=== PATIENT | female | born 1975 | race Caucasian/White ===

== ENCOUNTER 2017-02-04 16:54 | Inpatient (IN) | payer MEDICAID ==
--- NOTE | 2017-02-04 18:17 | C.PDOC ---
History Of Present Illness 42 year old female presents to the ED as a prescreen for heroin detox. Patient states she uses 10 bags daily intranasally and reports using 3 bags [employer]. She has no physical complaints at this time. Time Seen by Provider: 02/04/17 17:59 Chief Complaint (Nursing): Medical Clearance History Per: Patient History/Exam Limitations: no limitations Onset/Duration Of Symptoms: Hrs Current Symptoms Are (Timing): Still Present Severity: Mild Past Medical History Reviewed: Historical Data, Nursing Documentation, Vital Signs Vital Signs: Last Vital Signs Temp 98.2 F 02/04/17 20:51 Pulse 72 02/04/17 20:51 Resp 18 02/04/17 20:51 BP 123/82 02/04/17 20:51 Pulse Ox 98 02/04/17 20:51 Family History: States: Unknown Family Hx - Social History Hx Alcohol Use: Yes Hx Substance Use: Yes - Immunization History Hx Tetanus Toxoid Vaccination: No Hx Influenza Vaccination: No Hx Pneumococcal Vaccination: No Review Of Systems Except As Marked, All Systems Reviewed And Found Negative. Constitutional: Negative for: Fever, Chills Cardiovascular: Negative for: Chest Pain, Palpitations Respiratory: Negative for: Cough, Shortness of Breath Gastrointestinal: Negative for: Vomiting Psych: Negative for: Withdrawal Physical Exam - Physical Exam Appears: Non-toxic, No Acute Distress Skin: Normal Color, Warm, Dry, No Other (No track gonzalez) Head: Atraumatic, Normacephalic Eye(s): bilateral: EOMI, Other (+Pin point pupils) Oral Mucosa: Moist Chest: Symmetrical, No Deformity Cardiovascular: Rhythm Regular Respiratory: Normal Breath Sounds, No Accessory Muscle Use Extremity: Normal ROM Neurological/Psych: Oriented x3, Normal Speech ED Course And Treatment - Laboratory Results Result Diagrams: 02/04/17 18:54 02/04/17 18:54 Lab Interpretation: Abnormal (+ TOX OPIATES) Urine POC: Negative O2 Sat by Pulse Oximetry: 97 (Room air) Pulse Ox Interpretation: Normal Progress Note: Blood work and Urinalysis ordered and reviewed. Patient treated with Atarax and Desyrel. Crisis care director rn made aware of patient's arrival. Reevaluation Time: 20:19 Reassessment Condition: Unchanged - Physician Consult Information Outcome Of Conversation: D/W cRISIS @ 1800 and 2019- ok to Detox Medical Decision Making Medical Decision Making: astympatic mild pyuria, dirty catch- defer abx now for no complaints. heroine abuse. Disposition Doctor Will See Patient In The: Hospital Counseled Patient/Family Regarding: Studies Performed, Diagnosis - Disposition Disposition: HOSPITALIZED Disposition Time: 20:20 Condition: GOOD - Clinical Impression Clinical Impression: Heroin abuse - Scribe Statement The provider has reviewed the documentation as recorded by the Scribe Tavares Dee. Provider Attestation: All medical record entries made by the Scribe were at my direction and personally dictated by me. I have reviewed the chart and agree that the record accurately reflects my personal performance of the history, physical exam, medical decision making, and the department course for this patient. I have also personally directed, reviewed, and agree with the discharge instructions and disposition.
[2017-02-04 18:59] LABS: BASO # 0.1 K/uL (0.0-0.2); BASO % 1.1 % (0.0-2.0); EOS # 0.3 K/uL (0.0-0.7); EOS % 3.8 % (0.0-4.0); HEMATOCRIT 37.3 % (34.0-47.0); LYMPH % 30.3 % (20.0-40.0); MEAN CELL VOLUME 77.8 fL (81.0-99.0); MEAN CORPUSCULAR HEMOGLOBIN 25.6 pg (27.0-31.0); MEAN CORPUSCULAR HGB CONC 32.9 g/dL (33.0-37.0); MEAN PLATELET VOLUME 7.8 fL (7.2-11.7); MONO # 0.5 K/uL (0.0-0.8); MONO % 7.2 % (0.0-10.0); NRBC % 0.1 % (0.0-2.0); RED CELL DISTRIBUTION WIDTH 14.7 % (11.5-14.5); WHITE BLOOD COUNT 6.6 K/uL (4.8-10.8)
[2017-02-04 19:04] LABS: RBC URINE 4 /hpf (0-3); URINE BACTERIA RARE (<OCC); URINE BILIRUBIN NEGATIVE (NEGATIVE); URINE BLOOD NEGATIVE (NEGATIVE); URINE COLOR Yellow (YELLOW); URINE GLUCOSE (UA) NORMAL (Normal); URINE KETONE TRACE mg/dL (NEGATIVE); URINE LEUKOCYTE ESTERASE 1+ Leu/uL (Negative); URINE PROTEIN NEGATIVE (NEGATIVE); URINE UROBILINOGEN NORMAL mg/dL (0.2-1.0); WBC URINE 25 /hpf (0-5)
[2017-02-04 19:07] LABS: CHLORIDE 98 mmol/L (98-107); SODIUM 137 mmol/L (132-148)
[2017-02-04 19:08] LABS: POTASSIUM 4.1 mmol/L (3.6-5.2)
[2017-02-04 19:10] LABS: ALB/GLOB RATIO 1.4 (1.0-2.1); ALKALINE PHOSPHATASE 80 U/L (38-126); ALT/SGPT 18 U/L (9-52); AST/SGOT 22 U/L (14-36); BILIRUBIN,TOTAL 0.3 mg/dL (0.2-1.3); BLOOD UREA NITROGEN 13 mg/dL (7-17); CARBON DIOXIDE 25 mmol/L (22-30); GFR AFRICAN-AMERICAN > 60; GLUCOSE,RANDOM 136 mg/dL (65-105); TOTAL PROTEIN 6.7 g/dL (6.3-8.3)
[2017-02-04 19:11] LABS: ALCOHOL SERUM < 10 mg/dl (0-10); CALCIUM 8.7 mg/dl (8.6-10.4)
[2017-02-05] MEDS ORDERED: Aluminum Hydroxide/Magnesium Hydroxide Susp (30 mL) PO PRN (11:00)
--- NOTE | 2017-02-05 11:35 | PCM.PSYCH ---
Initial Psychiatric Evaluation - Initial Psychiatric Evaluation Type of Admission: Voluntary Legal Status: Capacity Chief Complaint (in patient's own words): "I need to get it together" Patient's Reaction to Hospitalization: positive History of Present Illness and Precipitating Events: Pt is a 42 yo female admitted for heroin detox. 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 Pt states she began using heroin 3 years ago and uses 10-12 bags per day intranasally. Last use was 9 bags at 4PM yesterday. Pt states she has used PCP in the past, but not currently, and has been to rehab for it in 2010. States she uses alcohol occasionally. Admits to smoking 8 cigarettes per day for 20 years. Denies using cocaine, cannabis, stimulants, ketamine, pain pills, and any other substances. Pt has no previous detox. At time of exam, pt is complaining of withdrawal symptoms including diaphoresis, chills, back pain, fatigue, irritability, and rhinorrhea. Pt denies abdominal pain, nausea, vomiting, anxiety, suicidal ideation, homicidal ideation, hallucinations and any other symptoms. Following discharge, pt is interested in outpatient program and possibly MAT. Past Psych hx: denies, no previous hospitalizations Family Psych Hx: denies PMHx: denies Medications: denies Legal issues: denies Current Medications: Active Medications Generic Name Dose Route Start Last Admin Trade Name Freq PRN Reason Stop Dose Admin Al Hydrox/Mg Hydrox/Simethicone 30 ml 02/05/17 11:00 Maalox 30 Ml PO TID PRN Indigestion / Heartburn Clonidine HCl 0.1 mg 02/05/17 11:00 Catapres PO Q8 PRN COWS Score More or Equal to 5 Hydroxyzine HCl 25 mg 02/04/17 20:55 02/04/17 21:57 Atarax PO 25 mg Q6 PRN Administration Anxiety Loperamide HCl 2 mg 02/05/17 11:00 Imodium PO Q8 PRN Diarrhea Methadone HCl 20 mg 02/05/17 10:00 02/05/17 11:16 Methadone PO 02/09/17 09:59 20 mg Q24H REGINA Administration Taper Ondansetron HCl 4 mg 02/05/17 11:00 Zofran Tab PO Q8 PRN Nausea/Vomiting Trazodone HCl 50 mg 02/04/17 20:55 02/04/17 21:57 Desyrel PO 50 mg HS PRN Administration Insomnia Past Psychiatric History - Past Psychiatric History Pertinent Medical Hx (Current Medical&Sleep Prob, Allergies): Allergies Allergy/AdvReac Type Severity Reaction Status Date / Time No Known Allergies Allergy Unverified 02/04/17 17:01 No Known Home Med 02/04/17 Review of Systems - Constitutional Constitutional: Chills, Sweats - EENT Nose/Mouth/Throat: As Per HPI - Gastrointestinal Gastrointestinal: absent: Abdominal Pain, Cramping, Diarrhea, Nausea, Vomiting - Musculoskeletal Musculoskeletal: As Par HPI, Back Pain - Neurological Neurological: absent: UNREMARKABLE - Psychiatric Psychiatric: absent: Hallucinations, Homicidal Ideation, Suicidal Ideation Mental Status Examination - Personal Presentation Personal Presentation: Looks stated age - Affect Affect: Constricted - Motor Activity Motor Activity: Calm - Reliability in Providing Information Reliability in Providing Information: Good - Speech Speech: Organized - Mood Mood: Anxious - Formal Thought Process Formal Thought Process: No Impairment - Obsessions/Compulsions Obsessions: No Compulsions: No - Cognitive Functions Orientation: Person, Place, Situation, Time Sensorium: Drowsy Attention/Concentration: Attentive Abstract Thinking: [place] Estimate of Intelligence: Average Judgement: Intact, as evidence by: Insight regarding need for hospitalization Memory: Recent intact, as evidence by: Ability to recall events of the day, Remote intact, as evidenced by: Abilit to recall sig. life events - Risk Risk: Withdrawal - Strength & Assets Inventory Strength & Assets Inventory: Family support, Employment status DSM 5 DX - DSM 5 DSM 5 Diagnosis: Primary: Opioid withdrawal Opioid use disorder-Severe - Recommended/Plan of Treatment Treatment Recommendations and Plan of Treatment: Opioids: -Methadone taper -As needed meds -Attend groups and activities -ME, CBT -Refer to outpatient program, consider MAT 32 minutes Projected ELOS: 4 days Prognosis: Good with treatment - Smoking Cessation Smoking Cessation Initiated: No
[2017-02-05 15:24] LABS: RBC URINE 1 /hpf (0-3); URINE BILIRUBIN NEGATIVE (NEGATIVE); URINE BLOOD NEGATIVE (NEGATIVE); URINE COLOR Yellow (YELLOW); URINE GLUCOSE (UA) NORMAL (Normal); URINE KETONE NEGATIVE (NEGATIVE); URINE LEUKOCYTE ESTERASE NEG Leu/uL (Negative); URINE PROTEIN NEGATIVE (NEGATIVE); URINE UROBILINOGEN NORMAL mg/dL (0.2-1.0); WBC URINE 1 /hpf (0-5)
--- NOTE | 2017-02-06 11:37 | PCM.PYCHPN ---
Psychiatric Progress Note - Psychiatric Progress Note Patient seen today, length of contact: 15 minutes Patient Chief Complaint: "I'm trying to feel better" Problems Identified/Issues Discussed: Pt seen, chart reviewed, and case discussed with staff. Pt is complaint with medications. States she had a difficult night, didn't sleep and feeling hot and cold all night. Denies abdominal cramping, nausea, vomiting, myalgias, rhinorrhea, anxiety, suicidal ideation, homicidal ideation and hallucinations. Pt states her plan following discharge is to move in with her daughter and attend [facility] outpatient program in [place]. Psychoeducation and support given. Medication Change: Yes (methadone taper) Medical Record Reviewed: Yes Mental Status Examination - Cognitive Function Orientation: Person, Place, Situation, Time Memory: Intact Attention: WNL Concentration: WNL Association: WNL Fund of Knowledge: WNL - Mood Mood: Neutral - Affect Affect: Constricted - Speech Speech: Appropriate - Formal Thought Process Formal Thought Process: No Impairment - Suicidal Ideation Suicidal Ideation: No - Homicidal Ideation Homicidal Ideation: No Goal/Treatment Plan - Goal/Treatment Plan Need for Continued Stay: Remain at risks for inpatient hospitalization, Discharge may exacerbated symptoms Progress Toward Problem(s) and Goals/Treatment Plan: Opioids: -Methadone taper -As needed meds -Attend groups and activities -PR, CBT -Refer to outpatient program, consider MAT Estimated Date of D/C: 02/09/17 - Smoking Cessation Smoking Cessation Initiated: No
--- NOTE | 2017-02-07 16:29 | PCM.PYCHPN ---
Psychiatric Progress Note - Psychiatric Progress Note Patient seen today, length of contact: 15 minutes Patient Chief Complaint: "don't feel well" Problems Identified/Issues Discussed: Pt was seen, chart reviewed, and case discussed with staff. Pt complaint with treatment. Reports continued withdrawal symptoms including insomnia, diaphoresis and chills. Denies abdominal pain, nausea, vomiting, suicidal ideation, homicidal ideation, and hallucinations. Pt plans to attend [facility] out patient program. At the time of exam, pt is still in bed, looks uncomfortable. Psychoeducation and support given. Medication Change: Yes (methadone taper, add seroquel, trazodone) Medical Record Reviewed: Yes Mental Status Examination - Cognitive Function Orientation: Person, Place, Situation, Time Memory: Intact Attention: WNL Concentration: WNL Association: WNL Fund of Knowledge: WNL - Mood Mood: Neutral - Affect Affect: Constricted - Speech Speech: Appropriate - Formal Thought Process Formal Thought Process: No Impairment - Suicidal Ideation Suicidal Ideation: No - Homicidal Ideation Homicidal Ideation: No Goal/Treatment Plan - Goal/Treatment Plan Need for Continued Stay: Remain at risks for inpatient hospitalization, Discharge may exacerbated symptoms Progress Toward Problem(s) and Goals/Treatment Plan: Opioids: -Methadone taper -As needed meds -Attend groups and activities -MS, CBT -Refer to outpatient program, consider MAT Estimated Date of D/C: 02/09/17
[2017-02-07 16:31] VITALS: RESP 18
--- NOTE | 2017-02-08 12:24 | PCM.PYCHPN ---
Psychiatric Progress Note - Psychiatric Progress Note Patient seen today, length of contact: 16 minutes Patient Chief Complaint: Patient seen and evaluated, chart reviewed and discussed with the nurse. The patient reports improvement in her mood and reports improvement in the withdrawal symptoms. However she still reports anxiety, and sweating. As per the nurse patient is improving. Patient is scheduled to be discharge tomorrow. She denies any suicidal ideation or homicidal ideation. Patient is taking medications and denies any side effects. Supportive therapy and psychoeducation were given. Medication Change: Yes (methadone taper, start gabapentin) Medical Record Reviewed: Yes Mental Status Examination - Cognitive Function Orientation: Person, Place, Situation, Time Memory: Intact Attention: WNL Concentration: WNL Association: WNL Fund of Knowledge: WNL - Mood Mood: Anxious - Affect Affect: Constricted - Speech Speech: Appropriate - Formal Thought Process Formal Thought Process: No Impairment - Suicidal Ideation Suicidal Ideation: No - Homicidal Ideation Homicidal Ideation: No Goal/Treatment Plan - Goal/Treatment Plan Need for Continued Stay: Remain at risks for inpatient hospitalization, Discharge may exacerbated symptoms Progress Toward Problem(s) and Goals/Treatment Plan: Primary: Opioid withdrawal Opioid use disorder-Severe Opioids: -Methadone taper -As needed meds -Attend groups and activities -NM, CBT -Refer to outpatient program, consider MAT Trazodone 50 mg by mouth daily at bedtime Gabapentin 100 mg by mouth 3 times a day Estimated Date of D/C: 02/09/17 - Smoking Cessation Smoking Cessation Initiated: No
[2017-02-09 05:49] VITALS: O2SAT 99
[2017-02-09 10:17] VITALS: BP 122/87; PULSE 80; TEMP 97.9
--- NOTE | 2017-02-09 12:01 | PCM.PYCHDC ---
Mental Status Examination - Mental Status Examination Orientation: Person, Place, Situation, Time Memory: Intact Mood: Neutral Affect: Constricted Speech: Soft Attention: WNL Concentration: WNL Association: WNL Fund of Knowledge: WNL Formal Thought Process: No Impairment Description of patient's judgement and insight: good, fair Psychotic Thoughts and Behaviors: denies any AVH Suicidal Ideation: No Current Homicidal Ideation?: No Discharge Summary - Discharge Note Reason for Hospitalization: Pt is a 42 yo female admitted for heroin detox. 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 Pt states she began using heroin 3 years ago and uses 10-12 bags per day intranasally. Last use was 9 bags at 4PM yesterday. Pt states she has used PCP in the past, but not currently, and has been to rehab for it in 2010. States she uses alcohol occasionally. Admits to smoking 8 cigarettes per day for 20 years. Denies using cocaine, cannabis, stimulants, ketamine, pain pills, and any other substances. Pt has no previous detox. At time of exam, pt is complaining of withdrawal symptoms including diaphoresis, chills, back pain, fatigue, irritability, and rhinorrhea. Pt denies abdominal pain, nausea, vomiting, anxiety, suicidal ideation, homicidal ideation, hallucinations and any other symptoms. Following discharge, pt is interested in outpatient program and possibly MAT. Past Psych hx: denies, no previous hospitalizations Consultations:: List each consultation separately and include: 1. Reason for request. 2. Findings. 3. Follow-up Summary of Hospital Course include:: 1. Description of specific treatment plan utilized for patients during their course of treatmen. 2. Summarize the time- course for resolution of acute symptoms and/or regressed behaviors. 3. Describe issues identified and worked on during hospitalization. 4. Describe medication utilized. 5. Describe medical problems identified and treated. 6. Reassessment of suicide risk Summary of Hospital Course: During the course of his stay, patient (pt) started progressively improving and he no longer remained anxious and irritable. He tolerated the withdrawal protocol very well. He didnt have any shakes, sweating or any other withdrawal symptoms. He started attending groups and meetings and started socializing. Denied any feelings of hopelessness, helplessness, and worthlessness, denied any problem with the sleep or appetite, denied suicidal ideation or homicidal ideation. Pt denied any auditory or visual hallucinations. Patient remained calm and cooperative and remained compliant with the medications. Patient tolerated the detox medications very well and denied any side effects. - Final Diagnosis (DSM 5) Condition upon Discharge: GOOD DSM 5: Opioid withdrawal Opioid use disorder-Severe Disposition: HOME/ ROUTINE Follow-up Treatment Plan: Education: Pt was educated and counseled about the risks and benefits of taking and not taking medications. Pt was educated and counseled about the risks of drinking and abusing drugs. Pt was educated and counseled to go to the ER or call 911 if pt develop suicidal ideation or homicidal ideation, worsening of symptoms or severe side effects of the meds. Prescriptions/Medication Reconciliation: RX: traZODone [Desyrel] 100 mg PO HS PRN #30 tab PRN Reason: Insomnia RX: QUEtiapine [SEROquel] 50 mg PO HS #30 tab - Smoking Cessation Smoking Cessation Medication prescribed: No - Antipsychotic Medications Pt discharged on 2 or more routine antipsychotic medications: No
== END 2017-02-09 12:21 | disposition home or self-care (01) | DRG 745 ==
LOC: C.ER 16:54 → C.7D 20:20
PROVIDERS: ADMIT Psychiatry & Neurology Psychiatry; ATTEND Psychiatry & Neurology Psychiatry
PROC: HZ2ZZZZ Detoxification Services for Substance Abuse Treatment (ICD-10-PCS; principal; 2017-02-04)
PROC: HZ59ZZZ Individual Psychotherapy for Substance Abuse Treatment, Supportive (ICD-10-PCS; 2017-02-04)
PROC: HZ46ZZZ Group Counseling for Substance Abuse Treatment, Psychoeducation (ICD-10-PCS; 2017-02-04)
DX: F11.23 Opioid dependence with withdrawal (principal)

== ENCOUNTER 2017-06-03 22:50 | Inpatient (IN) | payer MEDICAID, OTHER ==
--- NOTE | 2017-06-04 00:15 | C.PDOC ---
History Of Present Illness 42 year old female who presents to the ER as a prescreen for heroin detox. Patient reports heroin use earlier today; denies physical complaints at this time. Chief Complaint (Nursing): Substance Abuse History Per: Patient History/Exam Limitations: no limitations Onset/Duration Of Symptoms: Hrs Current Symptoms Are (Timing): Still Present Suicide/Self Injury Attempted (Context): None Modifying Factor(s): Narcotics Associated Symptoms: denies: Depression, Suicidal Thoughts, Suicidal Plan Involuntary Hold By: None Recent travel outside of the [place]: No Past Medical History Reviewed: Historical Data, Nursing Documentation, Vital Signs Vital Signs: Last Vital Signs Temp 98.4 F 06/03/17 23:17 Pulse 90 06/03/17 23:17 Resp 20 06/03/17 23:17 BP 152/96 H 06/03/17 23:17 Pulse Ox 98 06/04/17 00:19 - Medical History PMH: No Chronic Diseases Surgical History: No Surg Hx - [facility] DETOXIFICATION SERVICES FOR SUBSTANCE ABUSE TREATMENT (02/04/17) GROUP DIRECTOR CORPORATE FOR SUBSTANCE ABUSE TREATMENT, PSYCHOEDUCATION (02/04/17) INDIV PSYCHOTHERAPY FOR SUBSTANCE ABUSE TREATMENT, SUPPORT (02/04/17) Family History: States: Unknown Family Hx - Social History Hx Alcohol Use: Yes Hx Substance Use: Yes - Immunization History Hx Tetanus Toxoid Vaccination: No Hx Influenza Vaccination: No Hx Pneumococcal Vaccination: No Review Of Systems Constitutional: Negative for: Fever, Chills Gastrointestinal: Negative for: Nausea, Vomiting, Diarrhea Physical Exam - Physical Exam Appears: Non-toxic, No Acute Distress Skin: Normal Color, Warm, Dry Head: Atraumatic, Normacephalic Oral Mucosa: Moist Chest: Symmetrical, No Tenderness Cardiovascular: Rhythm Regular, No Murmur Respiratory: Normal Breath Sounds, No Rales, No Rhonchi, No Wheezing Gastrointestinal/Abdominal: Soft, No Tenderness Neurological/Psych: Oriented x3, Normal Speech, Normal Cognition ED Course And Treatment - Laboratory Results Result Diagrams: 06/04/17 00:24 06/04/17 00:24 O2 Sat by Pulse Oximetry: 98 (Room air) Pulse Ox Interpretation: Normal Progress Note: Blood work and urinalysis ordered. Disposition Discussed With : Jared Hammer Doctor Will See Patient In The: Hospital Counseled Patient/Family Regarding: Diagnosis - Disposition Disposition: HOSPITALIZED Disposition Time: 01:20 Condition: STABLE Forms: [facility] (Georgian) - Clinical Impression Clinical Impression: Opiate addiction - Scribe Statement The provider has reviewed the documentation as recorded by the Scribrosa maria Cassidy All medical record entries made by the Scribe were at my direction and personally dictated by me. I have reviewed the chart and agree that the record accurately reflects my personal performance of the history, physical exam, medical decision making, and the department course for this patient. I have also personally directed, reviewed, and agree with the discharge instructions and disposition.
[2017-06-04 00:28] LABS: BASO % 0.9 % (0.0-2.0); EOS # 0.3 K/uL (0.0-0.7); EOS % 5.5 % (0.0-4.0); HEMOGLOBIN 10.9 g/dL (11.0-16.0); LYMPH # 2.2 K/uL (1.0-4.3); MEAN CELL VOLUME 76.2 fL (81.0-99.0); MEAN CORPUSCULAR HEMOGLOBIN 24.5 pg (27.0-31.0); MEAN CORPUSCULAR HGB CONC 32.1 g/dL (33.0-37.0); MEAN PLATELET VOLUME 7.7 fL (7.2-11.7); MONO # 0.3 K/uL (0.0-0.8); MONO % 6.2 % (0.0-10.0); NEUT # 2.6 K/uL (1.8-7.0); NEUT % 47.4 % (50.0-75.0); RBC 4.45 Mil/uL (3.80-5.20); RED CELL DISTRIBUTION WIDTH 15.8 % (11.5-14.5); WHITE BLOOD COUNT 5.5 K/uL (4.8-10.8)
[2017-06-04 00:39] LABS: ALBUMIN 3.5 g/dL (3.5-5.0)
[2017-06-04 00:42] LABS: ALB/GLOB RATIO 1.2 (1.0-2.1); ALT/SGPT 26 U/L (9-52); AST/SGOT 21 U/L (14-36); BLOOD UREA NITROGEN 8 mg/dL (7-17); GFR AFRICAN-AMERICAN > 60; GFR NON-AFRICAN AMERICAN > 60
[2017-06-04 00:43] LABS: CALCIUM 8.5 mg/dl (8.6-10.4); SQUAMOUS EPITHIAL 3 /hpf (0-5); URINE BILIRUBIN NEGATIVE (NEGATIVE); URINE BLOOD NEGATIVE (NEGATIVE); URINE CLARITY Hazy (Clear); URINE COLOR Yellow (YELLOW); URINE GLUCOSE (UA) NORMAL (Normal); URINE LEUKOCYTE ESTERASE NEG Leu/uL (Negative); URINE NITRATE NEGATIVE (NEGATIVE); URINE PROTEIN NEGATIVE (NEGATIVE); URINE UROBILINOGEN NORMAL mg/dL (0.2-1.0)
[2017-06-04 00:49] LABS: BARBITURATES, UR NEGATIVE (NEGATIVE)
[2017-06-04 00:53] LABS: PHENCYCLIDINE, UR NEGATIVE (NEGATIVE)
[2017-06-04 01:41] LABS: BENZODIAZEPINES, UR POSITIVE (NEGATIVE); OPIATES, UR POSITIVE (NEGATIVE)
--- NOTE | 2017-06-04 04:05 | PCM.BM ---
<Shireen Calvert Giacomo - Last Filed: 06/04/17 10:58> Treatment Plan Problems - Problems identified on initial assessmt Opiate Dependence Date Initiated: 06/04/17 Time Initiated: 04:03 Assessment reference: NA Status: Active Treatment assets and liabiliti Patient Assests: cooperative, educated, ADL independent, negotiates basic needs Patient Liabilities: live alone, substance abuse - Milieu Protocol Maintain good personal hygiene: daily Encourage regular showers, daily Remind patient to perform daily oral care Conduct patient checks and document Observation sheet: Q15 minutes Maintain personal safety: every shift Educate patient to report safety concerns to staff, every shift Monitor environment for contraband/sharps Medication safety: Monitor for expected outcome, potential side effects: every shift, Assess barriers to learning: every shift, Assess readiness for medication education: every shift <Onelia Wiley - Last Filed: 06/04/17 13:55> Treatment Plan Problems - Problems identified on initial assessmt Opiate Dependence Date Initiated: 06/04/17 Time Initiated: 04:03 Assessment reference: NA Status: Active Problem 1 Date Initiated: 06/04/17 Time Initiated: 04:03 Assessment reference: NA Status: Active Family Contact Family involvement: Famliy/SO not involved Family contact: Patient agrees to contact - Goals for Treatment Patient goals for treatment: Transition to outpatient treatment so job can resume. 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 Discussed with Family/SO: No Was Patient/Family/SO present at Treatment Team Meeting: Yes <Jared Hammer - Last Filed: 06/04/17 20:34> - Diagnosis (1) Opioid use disorder, severe, dependence Status: Acute Interventions: 06/04/17 20:25 * Assess 7x/week regarding severity of withdrawal * Educate regarding risks, benefits, side effects and alternatives of medications * Use Motivational Interviewing for abstinence * Use CBT for relapse prevention * Medication management for withdrawal symptoms * Encourage medication assisted treatment *
[2017-06-04] MEDS ORDERED: Aluminum Hydroxide/Magnesium Hydroxide Susp (30 mL) PO PRN (10:37)
[2017-06-04 11:06] VITALS: RESP 18
--- NOTE | 2017-06-04 15:51 | PCM.PSYCH ---
Initial Psychiatric Evaluation - Initial Psychiatric Evaluation Type of Admission: Voluntary Chief Complaint (in patient's own words): I wanna get clean Patient's Reaction to Hospitalization: positive History of Present Illness and Precipitating Events: The pt was seen, chart reviewed and case discussed. Mrs Loving is a 42 year old female who presented to the ED because she wanted detox for her heroin use. She says the last time she used was yesterday at 7pm. She states she began using heroin 4 years ago and uses about 10 bags/day intranasally. Her last voluntary detox attempt was in 02/2017 here at [facility], however her brother of unknown cause 2 days after her completion of detox - this led her to abuse heroin again. She has a previous rehab stint in 2010. During my interview she was experiencing withdrawal symptoms including headache, shakiness, body aches, muscle aches, feeling hot, fatigue, irritability. 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 Pt denies abdominal pain, nausea, vomiting, anxiety, suicidal ideation, hallucinations and any other symptoms. She denies any psychiatric history. She has a history of EtOH abuse and currently smokes cigarettes 1/2 ppd for past 20 years. Denies using cocaine, cannabis, stimulants , ketamine, pain pills, and any other substances. Following discharge, pt is interested in outpatient program and possibly MAT. She was not interested in rehab because she was worried about losing her job as a home health lvn. Past Psych hx: denies, no previous hospitalizations Family Psych Hx: many family members with EtOH abuse PMHx: denies Medications: denies Legal issues: denies Insurance: medicaid Current Medications: Active Medications Generic Name Dose Route Start Last Admin Trade Name Freq PRN Reason Stop Dose Admin Al Hydrox/Mg Hydrox/Simethicone 30 ml 06/04/17 10:37 Maalox 30 Ml PO TID PRN Indigestion / Heartburn Clonidine HCl 0.1 mg 06/04/17 02:56 06/04/17 03:23 Catapres PO 0.1 mg Q8 PRN Administration COWS Score More or Equal to 5 Hydroxyzine HCl 50 mg 06/04/17 10:38 Atarax PO Q6H PRN Anxiety Ibuprofen 600 mg 06/04/17 10:38 Motrin Tab PO Q6H PRN Pain, moderate (4-7) Loperamide HCl 2 mg 06/04/17 10:37 Imodium PO Q8 PRN Diarrhea Ondansetron HCl 4 mg 06/04/17 10:37 Zofran Tab PO Q8 PRN Nausea/Vomiting Trazodone HCl 50 mg 06/04/17 02:58 Desyrel PO HS PRN Insomnia Past Psychiatric History - Past Psychiatric History Prior Professional Help: detox At [facility] hospital: [facility] 7th floor Date: 02/04/17 Duration: 5 nights History of ETOH/Drug Use: EtOH abuse Pertinent Medical Hx (Current Medical&Sleep Prob, Allergies): Allergies Allergy/AdvReac Type Severity Reaction Status Date / Time No Known Allergies Allergy Unverified 02/04/17 17:01 QUEtiapine [SEROquel] 50 mg PO HS #30 tab 02/07/17 traZODone [Desyrel] 100 mg PO HS PRN #30 tab 02/07/17 Review of Systems - Constitutional Constitutional: Chills - Respiratory Respiratory: absent: Dyspnea - Gastrointestinal Gastrointestinal: absent: Diarrhea - Musculoskeletal Musculoskeletal: Arthralgias, Back Pain, Muscle Cramps - Neurological Neurological: Restless Legs - Psychiatric Psychiatric: Anxiety, Irritability. absent: Hallucinations, Homicidal Ideation , Suicidal Ideation Mental Status Examination - Personal Presentation Personal Presentation: Looks stated age - Affect Affect: Broad - Motor Activity Motor Activity: Calm - Reliability in Providing Information Reliability in Providing Information: Good - Speech Speech: Organized - Mood Mood: Anxious - Formal Thought Process Formal Thought Process: No Impairment - Obsessions/Compulsions Obsessions: No Compulsions: No - Cognitive Functions Orientation: Person, Place, Situation, Time Sensorium: Drowsy Attention/Concentration: Attentive Abstract Thinking: [place] Estimate of Intelligence: Average Judgement: Intact, as evidence by: Insight regarding need for hospitalization Memory: Recent intact, as evidence by: Ability to recall events of the day - Risk Risk: Withdrawal - Strength & Assets Inventory Strength & Assets Inventory: Family support, Employment history DSM 5 DX - DSM 5 DSM 5 Diagnosis: Primary: Opioid withdrawal Opioid use disorder - severe - Recommended/Plan of Treatment Treatment Recommendations and Plan of Treatment: -Methadone taper -zofran 4mg po q8 prn for nausea -loperamide 2mg po q8 prn for diarrhea -maalox 30mg po tid prn for constipation -trazodone 50mg po hs prn for insomnia -hydroxyzine 50mg po q6 prn for anxiety -clonidine 0.1mg po q8 for elevated BP -As needed meds -Attend groups and activities -[place], CBT -Refer to outpatient program, consider MAT 33 minutes Projected ELOS: 3 nights Prognosis: good with treatment - Smoking Cessation Smoking Cessation Initiated: No
--- NOTE | 2017-06-05 14:45 | PCM.PYCHPN ---
Psychiatric Progress Note - Psychiatric Progress Note Patient seen today, length of contact: 16 mins Patient Chief Complaint: I'm feeling cold, hot, cold.." Problems Identified/Issues Discussed: The pt is seen, chart reviewed, case discuseed with staff. The pt is compliant with medications and reports no side-effects. Symptoms are improving but needs more time to stablize. She still admits to hot/cold flashes. Says she didn't sleep well the previous night. Denies nausea, diarrhea. After care discussed, support and psychoeducation given. Mental Status Examination - Cognitive Function Orientation: Person, Place, Situation, Time - Mood Mood: Anxious - Affect Affect: Broad - Formal Thought Process Formal Thought Process: No Impairment - Homicidal Ideation Homicidal Ideation: No Goal/Treatment Plan - Goal/Treatment Plan Need for Continued Stay: Discharge may exacerbated symptoms Progress Toward Problem(s) and Goals/Treatment Plan: -Methadone taper -zofran 4mg po q8 prn for nausea -loperamide 2mg po q8 prn for diarrhea -maalox 30mg po tid prn for constipation -trazodone 100mg po hs prn for insomnia -hydroxyzine 50mg po q6 prn for anxiety -clonidine 0.1mg po q8 for elevated BP -ibuprofen 600mg po q6 prn for pain -As needed meds -Attend groups and activities -[place], CBT -Refer to outpatient program, consider MAT 16 minutes Estimated Date of D/C: 06/07/17
--- NOTE | 2017-06-06 13:49 | PCM.PYCHPN ---
Psychiatric Progress Note - Psychiatric Progress Note Patient seen today, length of contact: 16 mins Patient Chief Complaint: "I'm feeling better today" Problems Identified/Issues Discussed: The pt is seen, chart reviewed, case discuseed with staff. The pt is compliant with medications and reports no side-effects. Symptoms are improving but needs more time to stablize. She still admits to hot/cold flashes. Says she slept much better last night. Denies nausea, diarrhea. After care discussed, support and psychoeducation given. Medication Change: Yes (methadone taper) Medical Record Reviewed: Yes Mental Status Examination - Cognitive Function Orientation: Person, Place, Situation, Time Memory: Intact Attention: WNL Concentration: WNL Association: WNL Fund of Knowledge: WNL - Mood Mood: Anxious - Affect Affect: Broad - Speech Speech: Appropriate - Language Language: Word Retrieval - Formal Thought Process Formal Thought Process: No Impairment - Suicidal Ideation Suicidal Ideation: No - Homicidal Ideation Homicidal Ideation: No Goal/Treatment Plan - Goal/Treatment Plan Need for Continued Stay: Discharge may exacerbated symptoms Progress Toward Problem(s) and Goals/Treatment Plan: -Methadone taper -zofran 4mg po q8 prn for nausea -loperamide 2mg po q8 prn for diarrhea -maalox 30mg po tid prn for constipation -trazodone 100mg po hs prn for insomnia -hydroxyzine 50mg po q6 prn for anxiety -clonidine 0.1mg po q8 for elevated BP -ibuprofen 600mg po q6 prn for pain -quetiapine 50mg po hs for sleep -As needed meds -Attend groups and activities -[place], CBT -Refer to outpatient program, consider MAT 16 minutes Estimated Date of D/C: 06/07/17
[2017-06-06 20:38] VITALS: O2SAT 99
[2017-06-07 09:42] VITALS: BP 122/78; PULSE 89; TEMP 98.2
--- NOTE | 2017-06-07 09:48 | PCM.PYCHDC ---
Mental Status Examination - Mental Status Examination Orientation: Person, Place, Situation, Time Memory: Intact Mood: Anxious Affect: Constricted Speech: Appropriate Attention: WNL Concentration: Poor Association: WNL Fund of Knowledge: WNL Formal Thought Process: No Impairment Suicidal Ideation: No Current Homicidal Ideation?: No Discharge Summary - Discharge Note Reason for Hospitalization: Heroin detox Consultations:: List each consultation separately and include: 1. Reason for request. 2. Findings. 3. Follow-up Summary of Hospital Course include:: 1. Description of specific treatment plan utilized for patients during their course of treatmen. 2. Summarize the time- course for resolution of acute symptoms and/or regressed behaviors. 3. Describe issues identified and worked on during hospitalization. 4. Describe medication utilized. 5. Describe medical problems identified and treated. 6. Reassessment of suicide risk Summary of Hospital Course: Hospital course: The pt was admitted and started on treatment with psychotherapy, support, psychoeducation and medications. [place] and CBT used. The pt attended groups and activities, as well as milieu therapy. All the risks and benefits of medications are discussed and the patient understood and agreed. After care discussed with the patient. Will go to Will attend [facility] IOP She was motivated but remained low wade and had signif. fatigue The patient improved with the treatment provided and discharged as planned. - Final Diagnosis (DSM 5) Condition upon Discharge: STABLE DSM 5: Primary: Opioid withdrawal Opioid use disorder - severe Anxiety d/o - unspecified Disposition: HOME/ ROUTINE Follow-up Treatment Plan: Attend [facility] IOP Continue below medications after discharge. Use relapse prevention skills. Return to ER or call 911 if suicidal, homicidal or symptoms relapse. Stay away from stress, alcohol and drugs. Use relaxation techniques. See primary doctor once a year and get labs. Consider MAT Prescriptions/Medication Reconciliation: hydrOXYzine HCl [Atarax] 50 mg PO Q8 #60 tab QUEtiapine [SEROquel] 50 mg PO HS #30 tab traZODone [Desyrel] 100 mg PO HS PRN #30 tab PRN Reason: Insomnia - Smoking Cessation Smoking Cessation Medication prescribed: No - Antipsychotic Medications Pt discharged on 2 or more routine antipsychotic medications: No
== END 2017-06-07 10:35 | disposition home or self-care (01) | DRG 745 ==
LOC: C.ER 22:50 → C.7D 06-04 01:21
PROVIDERS: ADMIT Psychiatry & Neurology Psychiatry; ATTEND Psychiatry & Neurology Psychiatry
PROC: HZ2ZZZZ Detoxification Services for Substance Abuse Treatment (ICD-10-PCS; principal; 2017-06-04)
PROC: HZ59ZZZ Individual Psychotherapy for Substance Abuse Treatment, Supportive (ICD-10-PCS; 2017-06-04)
PROC: HZ46ZZZ Group Counseling for Substance Abuse Treatment, Psychoeducation (ICD-10-PCS; 2017-06-04)
DX: F11.23 Opioid dependence with withdrawal (principal); F41.9 Anxiety disorder, unspecified; F17.210 Nicotine dependence, cigarettes, uncomplicated; G47.00 Insomnia, unspecified

== ENCOUNTER 2018-03-02 08:59 | Inpatient (IN) | payer MEDICAID, OTHER ==
[2018-03-02 09:39] LABS: HCG,QUALITATIVE URINE NEGATIVE (NEGATIVE)
[2018-03-02 09:41] LABS: SQUAMOUS EPITHIAL 3 /hpf (0-5); URINE BACTERIA RARE (<OCC); URINE BILIRUBIN NEGATIVE (NEGATIVE); URINE BLOOD NEGATIVE (NEGATIVE); URINE CLARITY Hazy (Clear); URINE COLOR Yellow (YELLOW); URINE GLUCOSE (UA) NORMAL (Normal); URINE LEUKOCYTE ESTERASE NEG Leu/uL (Negative); URINE PROTEIN NEGATIVE (NEGATIVE); URINE UROBILINOGEN NORMAL mg/dL (0.2-1.0)
[2018-03-02 10:02] LABS: BARBITURATES, UR NEGATIVE (NEGATIVE); BENZODIAZEPINES, UR NEGATIVE (NEGATIVE); PHENCYCLIDINE, UR NEGATIVE (NEGATIVE)
[2018-03-02 10:24] LABS: OPIATES, UR POSITIVE (NEGATIVE)
--- NOTE | 2018-03-02 10:24 | C.PDOC ---
History Of Present Illness 43-year-old female, presents to the emergency department requesting detox from heroin and alcohol. Last use was this morning, intranasally. Patient used three bags, and states her last drink was last night. She does not offer any physical complaints at this time. Denies SI/HI. Time Seen by Provider: 03/02/18 09:17 Chief Complaint (Nursing): Substance Abuse History Per: Patient History/Exam Limitations: no limitations Past Medical History Reviewed: Historical Data, Nursing Documentation, Vital Signs Vital Signs: Last Vital Signs Temp 97.6 F 03/02/18 09:03 Pulse 88 03/02/18 09:03 Resp 18 03/02/18 09:03 BP 164/98 H 03/02/18 09:03 Pulse Ox 100 03/02/18 10:35 - [facility] Procedures DETOXIFICATION SERVICES FOR SUBSTANCE ABUSE TREATMENT (06/04/17) GROUP RESPIRATORY TECH FOR SUBSTANCE ABUSE TREATMENT, PSYCHOEDUCATION (06/04/17) INDIV PSYCHOTHERAPY FOR SUBSTANCE ABUSE TREATMENT, SUPPORT (06/04/17) Family History: States: No Known Family Hx - Social History Hx Alcohol Use: Yes Hx Substance Use: Yes - Immunization History Hx Tetanus Toxoid Vaccination: No Hx Influenza Vaccination: No Hx Pneumococcal Vaccination: No Review Of Systems Constitutional: Negative for: Fever Cardiovascular: Negative for: Chest Pain Respiratory: Negative for: Shortness of Breath Gastrointestinal: Negative for: Vomiting Musculoskeletal: Negative for: Back Pain Skin: Negative for: Rash Neurological: Negative for: Weakness, Numbness, Headache, Dizziness Psych: Negative for: Suicidal ideation, Withdrawal Physical Exam - Physical Exam Appears: Non-toxic, No Acute Distress Skin: Normal Color, Warm, Dry, No Rash Head: Normacephalic Eye(s): bilateral: PERRL Nose: Normal Oral Mucosa: Moist Lips: Normal Appearing Neck: Normal ROM Chest: Symmetrical Cardiovascular: Rhythm Regular, No Murmur Respiratory: Normal Breath Sounds, No Accessory Muscle Use Extremity: Normal ROM, No Deformity, No Swelling Neurological/Psych: Oriented x3, Normal Speech ED Course And Treatment - Laboratory Results Result Diagrams: 03/02/18 10:19 03/02/18 10:19 O2 Sat by Pulse Oximetry: 100 (RA) Pulse Ox Interpretation: Normal Medical Decision Making Medical Decision Making: Impression: Detox opiate and alcohol Plan: * Bloodwork * Crisis evaluation * UA Labs ordered and reviewed. In my clinical judgment patient is medically cleared and stable for admission. As per detxox coordinator Onelia, the is to be admitted. 1055 Dr Hammer accepts patient for opiate detox Disposition - Disposition Disposition: HOSPITALIZED Disposition Time: 10:57 Condition: STABLE - POA Present On Arrival: None - Clinical Impression Clinical Impression: Opioid use disorder, severe, dependence, Alcohol abuse - Scribe Statement The provider has reviewed the documentation as recorded by the Scribe (Sher Campoverde) All medical record entries made by the Scribe were at my direction and personally dictated by me. I have reviewed the chart and agree that the record accurately reflects my personal performance of the history, physical exam, medical decision making, and the department course for this patient. I have also personally directed, reviewed, and agree with the discharge instructions and disposition. Decision To Admit - Pt Status Changed To: Hospital Disposition Of: Inpatient - Admit Certification Admit to Inpatient:: After my assessment, the patient will require hospitalization for at least two midnights. This is because of the severity of symptoms shown, intensity of services needed, and/or the medical risk in this patient being treated as an outpatient. - InPatient: Physician Admission Certification: I certify that this patient requires 2 or more midnights of care for the following reason:: Patient with opiate use disorder severe and will need inpatient detox - . Bed Request Type: Detox Admitting Physician: Jared Hammer Patient Diagnosis: Opioid use disorder, severe, dependence, Alcohol abuse
[2018-03-02 10:25] LABS: BASO % 0.7 % (0.0-2.0); EOS # 0.2 K/uL (0.0-0.7); HEMOGLOBIN 9.7 g/dL (11.0-16.0); LYMPH # 1.9 K/uL (1.0-4.3); LYMPH % 30.1 % (20.0-40.0); MEAN CELL VOLUME 69.6 fL (81.0-99.0); MEAN CORPUSCULAR HEMOGLOBIN 22.6 pg (27.0-31.0); MEAN CORPUSCULAR HGB CONC 32.6 g/dL (33.0-37.0); MONO # 0.5 K/uL (0.0-0.8); MONO % 8.3 % (0.0-10.0); NEUT # 3.6 K/uL (1.8-7.0); NEUT % 57.9 % (50.0-75.0); RBC 4.27 Mil/uL (3.80-5.20); WHITE BLOOD COUNT 6.2 K/uL (4.8-10.8)
[2018-03-02 10:37] LABS: ALB/GLOB RATIO 1.2 (1.0-2.1); ALBUMIN 3.6 g/dL (3.5-5.0); ALT/SGPT 20 U/L (9-52); AST/SGOT 18 U/L (14-36); BLOOD UREA NITROGEN 10 mg/dL (7-17); CALCIUM 8.5 mg/dl (8.6-10.4); GFR AFRICAN-AMERICAN > 60; GFR NON-AFRICAN AMERICAN > 60
[2018-03-02] MEDS ORDERED: Aluminum Hydroxide/Magnesium Hydroxide Susp (30 mL) PO PRN (12:14)
--- NOTE | 2018-03-02 12:23 | PCM.PSYCH ---
Initial Psychiatric Evaluation - Initial Psychiatric Evaluation Type of Admission: Voluntary Legal Status: Capacity Chief Complaint (in patient's own words): "I relapsed" History of Present Illness and Precipitating Events: The pt was seen, chart reviewed and case discussed. She is known from previous admissions Mrs Loving is a 43 year-old female who presented to the ED because she wanted detox for her heroin again. She states she began using heroin 5 years ago and uses about 15 bags/day intranasally. Her last voluntary detox attempt was in 2016 here at [facility], however she couldn't get into a rehab and she relapsed afterwards. She has a previous rehab stint in 2010. 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 Pt denies suicidal ideation, hallucinations and any other major psych symptoms. She denies any psychiatric history. She has a history of EtOH abuse and drinks "a lot" of vodka and 6-beers, and currently smokes cigarettes 1/2 ppd for past 20 years. Denies using cocaine, cannabis, stimulants, ketamine, pain pills, and any other substances. Past Psych hx: denies, no previous hospitalizations Family Psych Hx: many family members with EtOH abuse PMHx: denies Medications: denies Legal issues: denies Current Medications: Active Medications Generic Name Dose Route Start Last Admin Trade Name Freq PRN Reason Stop Dose Admin Al Hydrox/Mg Hydrox/Simethicone 30 ml 03/02/18 12:14 Maalox 30 Ml PO TID PRN Indigestion / Heartburn Clonidine HCl 0.1 mg 03/02/18 12:14 Catapres PO Q8 PRN COWS Score More or Equal to 5 Hydroxyzine HCl 50 mg 03/02/18 12:17 Atarax PO Q6H PRN Anxiety Ibuprofen 600 mg 03/02/18 12:17 Motrin Tab PO Q6H PRN Pain, moderate (4-7) Loperamide HCl 2 mg 03/02/18 12:14 Imodium PO Q8 PRN Diarrhea Ondansetron HCl 4 mg 03/02/18 12:14 Zofran Tab PO Q8 PRN Nausea/Vomiting Trazodone HCl 100 mg 03/02/18 12:17 Desyrel PO HS PRN Insomnia Past Psychiatric History - Past Psychiatric History Previous Treatment History: None Pertinent Medical Hx (Current Medical&Sleep Prob, Allergies): Allergies Allergy/AdvReac Type Severity Reaction Status Date / Time No Known Allergies Allergy Unverified 02/04/17 17:01 No Known Home Med 03/02/18 Mental Status Examination - Personal Presentation Personal Presentation: Looks stated age - Affect Affect: Constricted - Motor Activity Motor Activity: Calm - Reliability in Providing Information Reliability in Providing Information: Good - Speech Speech: Organized - Mood Mood: Anxious - Formal Thought Process Formal Thought Process: No Impairment - Cognitive Functions Orientation: Person, Place, Situation, Time Sensorium: Alert Attention/Concentration: Attentive Estimate of Intelligence: Average Judgement: Intact, as evidence by: Insight regarding need for hospitalization Memory: Recent intact, as evidence by: Ability to recall events of the day, Remote intact, as evidenced by: Abilit to recall sig. life events - Risk Risk: Withdrawal, Diminished functioning - Strength & Assets Inventory Strength & Assets Inventory: Cooperative - Limitations Limitations: Other DSM 5 DX - DSM 5 DSM 5 Diagnosis: Primary: Opioid withdrawal Opioid use disorder - severe Alcohol withdrawal Alcohol use d/o - severe - Recommended/Plan of Treatment Treatment Recommendations and Plan of Treatment: -Methadone taper -Librium taper -Gabapentin if needed -zofran 4mg po q8 prn for nausea -loperamide 2mg po q8 prn for diarrhea -maalox 30mg po tid prn for constipation -trazodone 50mg po hs prn for insomnia -hydroxyzine 50mg po q6 prn for anxiety -clonidine 0.1mg po q8 for elevated BP -As needed meds -Attend groups and activities -[place], CBT -Refer to inpatient program, or consider MAT 34 minutes Projected ELOS: 4-5 days Prognosis: Good - Smoking Cessation Smoking Cessation Initiated: Yes
--- NOTE | 2018-03-02 12:53 | PCM.BM ---
<Dawson Marr - Last Filed: 03/02/18 12:52> Treatment assets and liabiliti Patient Assests: cooperative, educated, ADL independent, negotiates basic needs Patient Liabilities: substance abuse <Jared Hammer - Last Filed: 03/03/18 23:27> - Diagnosis (1) Opioid use disorder, severe, dependence Status: Acute Interventions: 03/03/18 23:27 * Assess 7x/week regarding severity of withdrawal * Educate regarding risks, benefits, side effects and alternatives of medications * Use Motivational Interviewing for abstinence * Use CBT for relapse prevention * Medication management for withdrawal symptoms * Encourage medication assisted treatment * <Onelia Wiley - Last Filed: 03/04/18 11:53> Family Contact Family involvement: Brian/SO not involved - Goals for Treatment Patient goals for treatment: Complete detox and transition to short-term rehab. Discharge/Continuing Care - Education Needs Education Needs: Patient Medication, Patient Diagnosis/Disease Process, Patient Coping Skills, Patient Anger Management skills, Patient Placement options, Patient Community resources - Discharge Discharge Criteria: No longer exhibiting s/s of withdrawal, Reduction of target symptoms Discharge to:: Substance Abuse Rehab - Treatment Team Participation Patient/Family/SO Statement: 03/04/18 11:53 "I wanna try to get into [facility]." Discussed with Family/SO: No Was Patient/Family/SO present at Treatment Team Meeting: Yes
[2018-03-02] MEDS: Multiple Vitamins Tab PO SCH (14:29)
[2018-03-03] MEDS: Multiple Vitamins Tab PO SCH (09:09)
--- NOTE | 2018-03-03 14:01 | PCM.PYCHPN ---
Psychiatric Progress Note - Psychiatric Progress Note Patient seen today, length of contact: 16 min Patient Chief Complaint: "I could be feeling better" Problems Identified/Issues Discussed: The pt is seen, chart reviewed, case discussed with staff. The pt is compliant with medications and reports no side-effects. Symptoms are improving but needs more time to stabilize. After care discussed, support and psychoeducation given. Pt appeared tired and anxious Pt stated she did not feel sleep well last night, she kept feeling either too hot or too cold Medication Change: Yes (Detox changes daily) Medical Record Reviewed: Yes Mental Status Examination - Cognitive Function Orientation: Person, Place, Situation, Time Memory: Intact Attention: WNL Concentration: WNL Association: WNL Fund of Knowledge: WNL - Mood Mood: Anxious - Affect Affect: Constricted - Speech Speech: Appropriate - Formal Thought Process Formal Thought Process: No Impairment - Suicidal Ideation Suicidal Ideation: No - Homicidal Ideation Homicidal Ideation: No Goal/Treatment Plan - Goal/Treatment Plan Need for Continued Stay: Discharge may exacerbated symptoms, Severe functional impairment Progress Toward Problem(s) and Goals/Treatment Plan: Continue medications Support and psychoeducation daily Attend groups and activities daily After care planning by BUSTER - Smoking Cessation Smoking Cessation Initiated: Yes
--- NOTE | 2018-03-04 08:55 | PCM.PYCHPN ---
Psychiatric Progress Note - Psychiatric Progress Note Patient seen today, length of contact: 15 min Patient Chief Complaint: "Today is not a good day" Problems Identified/Issues Discussed: The pt is seen, chart reviewed, case discussed with staff. The pt is compliant with medications and reports no side-effects. Symptoms are improving but needs more time to stabilize. After care discussed, support and psychoeducation given. Pt complained of body aches and a dry mouth Pt stated she did not sleep well, and wants medication to help her relax since she feels agitated Medication Change: Yes (Detox changes daily) Medical Record Reviewed: Yes Mental Status Examination - Cognitive Function Orientation: Person, Place, Situation, Time Memory: Intact Attention: WNL Concentration: WNL Association: WNL Fund of Knowledge: WNL - Mood Mood: Anxious - Affect Affect: Constricted - Speech Speech: Appropriate - Formal Thought Process Formal Thought Process: No Impairment - Suicidal Ideation Suicidal Ideation: No - Homicidal Ideation Homicidal Ideation: No Goal/Treatment Plan - Goal/Treatment Plan Need for Continued Stay: Discharge may exacerbated symptoms, Severe functional impairment Progress Toward Problem(s) and Goals/Treatment Plan: Continue medications Support and psychoeducation daily Attend groups and activities daily After care planning by BUSTER
[2018-03-04] MEDS: Multiple Vitamins Tab PO SCH (09:20)
[2018-03-05] MEDS: Multiple Vitamins Tab PO SCH (09:15)
--- NOTE | 2018-03-05 15:01 | PCM.PYCHPN ---
Psychiatric Progress Note - Psychiatric Progress Note Patient seen today, length of contact: 16 min Patient Chief Complaint: "I'm ok" Problems Identified/Issues Discussed: The pt is seen, chart reviewed, case discussed with staff. Support given, CBT and [place] used briefly No new symptoms reported, improving slowly and needs more time No SEs from medications, risks discussed. After care discussed Pt appeared to be doing better today, she reported sleeping well overnight Medication Change: Yes (Detox changes daily) Medical Record Reviewed: Yes Mental Status Examination - Cognitive Function Orientation: Person, Place, Situation, Time Memory: Intact Attention: WNL Concentration: WNL Association: WNL Fund of Knowledge: WNL - Mood Mood: Anxious - Affect Affect: Constricted - Speech Speech: Appropriate - Formal Thought Process Formal Thought Process: No Impairment - Suicidal Ideation Suicidal Ideation: No - Homicidal Ideation Homicidal Ideation: No Goal/Treatment Plan - Goal/Treatment Plan Need for Continued Stay: Discharge may exacerbated symptoms, Severe functional impairment Progress Toward Problem(s) and Goals/Treatment Plan: Continue medications Support and psychoeducation daily Attend groups and activities daily After care planning by BUSTER
[2018-03-05 16:44] VITALS: RESP 18
--- NOTE | 2018-03-06 08:55 | PCM.PYCHDC ---
Mental Status Examination - Mental Status Examination Orientation: Person, Place, Situation, Time Memory: Intact Mood: Anxious Affect: Constricted Speech: Appropriate Attention: WNL Concentration: WNL Association: WNL Fund of Knowledge: WNL Formal Thought Process: No Impairment Suicidal Ideation: No Current Homicidal Ideation?: No Discharge Summary - Discharge Note Reason for Hospitalization: Opioid detox Consultations:: List each consultation separately and include: 1. Reason for request. 2. Findings. 3. Follow-up Summary of Hospital Course include:: 1. Description of specific treatment plan utilized for patients during their course of treatmen. 2. Summarize the time- course for resolution of acute symptoms and/or regressed behaviors. 3. Describe issues identified and worked on during hospitalization. 4. Describe medication utilized. 5. Describe medical problems identified and treated. 6. Reassessment of suicide risk Summary of Hospital Course: The pt was seen, chart reviewed and case discussed. On admission: Mrs Loving is a 43 year-old female who presented to the ED because she wanted detox for her heroin again. She states she began using heroin 5 years ago and uses about 15 bags/day intranasally. Her last voluntary detox attempt was in 2016 here at [facility], however she couldn't get into a rehab and she relapsed afterwards. She has a previous rehab stint in 2010. 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 Pt denies suicidal ideation, hallucinations and any other major psych symptoms. She denies any psychiatric history. She has a history of EtOH abuse and drinks "a lot" of vodka and 6-beers, and currently smokes cigarettes 1/2 ppd for past 20 years. Denies using cocaine, cannabis, stimulants, ketamine, pain pills, and any other substances. Past Psych hx: denies, no previous hospitalizations Family Psych Hx: many family members with EtOH abuse PMHx: denies Medications: denies Legal issues: denies Hospital course: The pt was admitted and started on treatment with psychotherapy, support, psychoeducation and medications. OH and CBT used. The pt attended groups and activities, as well as milieu therapy. All the risks and benefits of medications are discussed and the patient understood and agreed. The pt improved with the treatments provided. She had lots of anxiety and spent time in bed After care discussed with the patient. She went to [facility] re[facility]. - Final Diagnosis (DSM 5) Condition upon Discharge: STABLE DSM 5: Primary: Opioid withdrawal Opioid use disorder - severe Alcohol withdrawal Alcohol use d/o - severe Disposition: HOME/ ROUTINE Follow-up Treatment Plan: Continue below medications after discharge. Follow after care plan as discussed. Use relapse prevention skills Return to ER or call 911 if suicidal, homicidal or symptoms relapse. Stay away from stress, alcohol and drugs. See primary doctor regularly and get labs. Prescriptions/Medication Reconciliation: traZODone [Desyrel] 100 mg PO HS PRN #30 tab PRN Reason: Insomnia - Smoking Cessation Smoking Cessation Medication prescribed: No - Antipsychotic Medications Pt discharged on 2 or more routine antipsychotic medications: No
[2018-03-06] MEDS: Multiple Vitamins Tab PO SCH (09:00)
[2018-03-06 09:13] VITALS: BP 110/79; PULSE 75; TEMP 98; O2SAT 99
== END 2018-03-06 09:15 | disposition home or self-care (01) | DRG 745 ==
LOC: C.ER 08:59 → C.7D 10:59
PROVIDERS: ADMIT Psychiatry & Neurology Psychiatry; ATTEND Psychiatry & Neurology Psychiatry
PROC: HZ2ZZZZ Detoxification Services for Substance Abuse Treatment (ICD-10-PCS; principal; 2018-03-02)
PROC: GZHZZZZ Group Psychotherapy (ICD-10-PCS; 2018-03-02)
DX: F11.23 Opioid dependence with withdrawal (principal); F17.200 Nicotine dependence, unspecified, uncomplicated; F41.9 Anxiety disorder, unspecified; F10.239 Alcohol dependence with withdrawal, unspecified

== ENCOUNTER 2018-04-12 15:50 | Inpatient (IN) | payer MEDICAID, OTHER ==
[2018-04-12 16:58] LABS: BASO % 0.8 % (0.0-2.0); EOS # 0.2 K/uL (0.0-0.7); EOS % 2.8 % (0.0-4.0); HEMOGLOBIN 10.5 g/dL (11.0-16.0); LYMPH # 1.9 K/uL (1.0-4.3); LYMPH % 31.9 % (20.0-40.0); MEAN CELL VOLUME 69.3 fL (81.0-99.0); MEAN CORPUSCULAR HEMOGLOBIN 22.5 pg (27.0-31.0); MEAN CORPUSCULAR HGB CONC 32.5 g/dL (33.0-37.0); MEAN PLATELET VOLUME 7.4 fL (7.2-11.7); MONO # 0.5 K/uL (0.0-0.8); MONO % 8.5 % (0.0-10.0); NEUT # 3.3 K/uL (1.8-7.0); RBC 4.67 Mil/uL (3.80-5.20); RED CELL DISTRIBUTION WIDTH 17.8 % (11.5-14.5); WHITE BLOOD COUNT 5.9 K/uL (4.8-10.8)
[2018-04-12 17:02] LABS: SQUAMOUS EPITHIAL 8 /hpf (0-5); URINE BACTERIA RARE (<OCC); URINE BILIRUBIN NEGATIVE (NEGATIVE); URINE BLOOD NEGATIVE (NEGATIVE); URINE CLARITY Hazy (Clear); URINE COLOR Yellow (YELLOW); URINE GLUCOSE (UA) NORMAL (Normal); URINE LEUKOCYTE ESTERASE NEG Leu/uL (Negative); URINE PROTEIN NEGATIVE (NEGATIVE); URINE UROBILINOGEN NORMAL mg/dL (0.2-1.0)
[2018-04-12 17:06] LABS: HCG,QUALITATIVE URINE NEGATIVE (NEGATIVE)
[2018-04-12 17:10] LABS: ALB/GLOB RATIO 1.4 (1.0-2.1); ALT/SGPT 25 U/L (9-52); AST/SGOT 17 U/L (14-36); BLOOD UREA NITROGEN 8 mg/dL (7-17); CALCIUM 8.7 mg/dl (8.6-10.4); GFR AFRICAN-AMERICAN > 60; GFR NON-AFRICAN AMERICAN > 60
[2018-04-12 17:17] LABS: BARBITURATES, UR NEGATIVE (NEGATIVE); BENZODIAZEPINES, UR NEGATIVE (NEGATIVE); PHENCYCLIDINE, UR NEGATIVE (NEGATIVE)
[2018-04-12 17:19] LABS: OPIATES, UR POSITIVE (NEGATIVE)
--- NOTE | 2018-04-12 17:23 | C.PDOC ---
History Of Present Illness 43 year old female presents to the emergency department requesting detox from heroin and alcohol which she last used this morning. Patient denies any medical problems, history of withdrawal seizures, IV drug use, and suicidal or homicidal ideation. Time Seen by Provider: 04/12/18 16:11 Chief Complaint (Nursing): Substance Abuse History Per: Patient History/Exam Limitations: no limitations Onset/Duration Of Symptoms: Hrs Current Symptoms Are (Timing): Still Present Suicide/Self Injury Attempted (Context): None Modifying Factor(s): Alcohol, Other (heroin) Associated Symptoms: denies: Suicidal Thoughts, Suicidal Plan, Other (homicidal ideation) Past Medical History Reviewed: Historical Data, Nursing Documentation, Vital Signs Vital Signs: Last Vital Signs Temp 98.2 F 04/12/18 18:09 Pulse 80 04/12/18 18:09 Resp 20 04/12/18 18:09 BP 140/86 04/12/18 18:09 Pulse Ox 98 04/12/18 18:09 - Medical History PMH: No Chronic Diseases Denies: Diabetes, Hepatitis, HIV, HTN, Chronic Kidney Disease, Seizures, Sexually Transmitted Disease Surgical History: No Surg Hx - [facility] Procedures DETOXIFICATION SERVICES FOR SUBSTANCE ABUSE TREATMENT (03/02/18) GROUP MULTIPLE WIRE SAWYER FOR SUBSTANCE ABUSE TREATMENT, PSYCHOEDUCATION (06/04/17) GROUP PSYCHOTHERAPY (03/02/18) INDIV PSYCHOTHERAPY FOR SUBSTANCE ABUSE TREATMENT, SUPPORT (06/04/17) Family History: States: No Known Family Hx - Social History Hx Alcohol Use: Yes Hx Substance Use: Yes - Immunization History Hx Tetanus Toxoid Vaccination: No Hx Influenza Vaccination: No Hx Pneumococcal Vaccination: No Review Of Systems Except As Marked, All Systems Reviewed And Found Negative. Physical Exam - Physical Exam Appears: Well, Non-toxic, No Acute Distress Skin: Warm, Dry Head: Atraumatic, Normacephalic Eye(s): bilateral: Normal Inspection, EOMI Nose: Normal Oral Mucosa: Moist Neck: Normal ROM, Supple Chest: Symmetrical Cardiovascular: Rhythm Regular Respiratory: Normal Breath Sounds, No Accessory Muscle Use Gastrointestinal/Abdominal: Soft, No Tenderness Neurological/Psych: Oriented x3, Normal Speech, Other (no focal deficits) ED Course And Treatment - Laboratory Results Result Diagrams: 04/12/18 16:50 04/12/18 16:50 O2 Sat by Pulse Oximetry: 100 (RA) Pulse Ox Interpretation: Normal Progress Note: Pt was seen and evaluted by site worker who discussed case with Dr Torres and lexis van admission. Disposition - Disposition Disposition: HOSPITALIZED Disposition Time: 18:19 Condition: STABLE Forms: [facility] (Romanian) - Clinical Impression Clinical Impression: Opioid use disorder, severe, dependence, Alcohol abuse - PA / BULLDOGGER / Resident Statement MD/DO has reviewed & agrees with the documentation as recorded. - Scribe Statement The provider has reviewed the documentation as recorded by the Scribe (Charles Echols) All medical record entries made by the Scribe were at my direction and personally dictated by me. I have reviewed the chart and agree that the record accurately reflects my personal performance of the history, physical exam, medical decision making, and the department course for this patient. I have also personally directed, reviewed, and agree with the discharge instructions and disposition.
--- NOTE | 2018-04-12 18:31 | PCM.BM ---
<Silva Campuzano - Last Filed: 04/12/18 18:30> Treatment Plan Problems - Problems identified on initial assessmt potiential for opiate withdrawal Date Initiated: 04/12/18 Time Initiated: 18:30 Assessment reference: NA Status: Active potiential for autonomic instability related to alcohol withdrawal Date Initiated: 04/12/18 Time Initiated: 18:31 Assessment reference: NA Status: Active Treatment assets and liabiliti Patient Assests: cooperative, educated, ADL independent, physically healthy, negotiates basic needs, cognitively intact Patient Liabilities: financial problems, substance abuse - Milieu Protocol Maintain good personal hygiene: daily Encourage regular showers, daily Remind patient to perform daily oral care, daily Assist patient to perform ADL's Maintain personal safety: every shift Educate patient to report safety concerns to staff, every shift Monitor environment for contraband/sharps Medication safety: Monitor for expected outcome, potential side effects: every shift, Assess barriers to learning: every shift, Assess readiness for medication education: every shift <Onelia Wiley - Last Filed: 04/14/18 10:57> Family Contact Family involvement: Famliy/SO not involved - Goals for Treatment Patient goals for treatment: Complete detox and apply for short term rehab at [facility]. Discharge/Continuing Care - Education Needs Education Needs: Patient Medication, Patient Diagnosis/Disease Process, Patient Coping Skills, Patient Anger Management skills, Patient Placement options, Patient Community resources - Discharge Discharge Criteria: No longer exhibiting s/s of withdrawal, Reduction of target symptoms Discharge to:: Substance Abuse Rehab - Treatment Team Participation Patient/Family/SO Statement: 04/14/18 10:58 "I wanna try to get in to [facility]." Discussed with Family/SO: No Was Patient/Family/SO present at Treatment Team Meeting: Yes <Jared Hammer - Last Filed: 04/14/18 12:40> - Diagnosis (1) Opioid use disorder, severe, dependence Status: Acute Interventions: 04/14/18 12:40 * Assess 7x/week regarding severity of withdrawal * Educate regarding risks, benefits, side effects and alternatives of medications * Use Motivational Interviewing for abstinence * Use CBT for relapse prevention * Medication management for withdrawal symptoms * Encourage medication assisted treatment *
[2018-04-13] MEDS: Multiple Vitamins Tab PO SCH (09:53)
--- NOTE | 2018-04-13 14:32 | PCM.PSYCH ---
Initial Psychiatric Evaluation - Initial Psychiatric Evaluation Type of Admission: Voluntary Legal Status: Capacity Chief Complaint (in patient's own words): "I need help with heroin detox" History of Present Illness and Precipitating Events: Patient is a 43 year old female who presented to the ED because she wanted detox for her heroin and alcohol abuse. Patients last use was the day of admission in the morning. Patient currently uses 15 bags of heroin a day for the past 6 months (initially started in 2010). Patient drinks 6 pack of beer a day in addition to 3-4 shots of whiskey (started drinking last year and progressively increased the quantity over the year). Patient smokes PPD of cigarettes for the past 20 years. Patient normally does not use cocaine but had a small amount last Friday. Patient complains of withdrawal symptoms including joint pain, nausea, fatigue, and alternating feels of change in temperature. Patient has been here twice. Last year and 2 months ago. Both times she went home instead of rehab and relapsed after 1 week after each discharge. Patient lives alone in apartment in [place]. Patient has 1 daughter who is 23 y/o but has no close relationship with. Patient is unemployed and makes money from unemployment. Detox Hx: 2x Rehab Hx: Denies Medical Hx: Denies Surgical Hx: Denies Family Hx: Brother last year from alcohol abuse. Uncle has substance abuse history with cocaine. Psych Hx: Denies Allergies: No Known Allergies Current Medications: Active Medications Generic Name Dose Route Start Last Admin Trade Name Freq PRN Reason Stop Dose Admin Chlordiazepoxide 25 mg 04/13/18 09:51 04/13/18 12:44 Librium PO 04/17/18 21:14 25 mg Q6 REGINA Administration Taper Clonidine HCl 0.1 mg 04/12/18 18:55 Catapres PO Q8 PRN COWS Score More or Equal to 5 Folic Acid 1 mg 04/13/18 10:00 04/13/18 09:53 Folic Acid PO 1 mg DAILY REGINA Administration Hydroxyzine HCl 25 mg 04/12/18 19:01 Atarax PO Q6 PRN Anxiety Ibuprofen 600 mg 04/12/18 18:58 Motrin Tab PO TID PRN Pain, moderate (4-7) Loperamide HCl 2 mg 04/12/18 18:55 Imodium PO Q8 PRN Diarrhea Methadone HCl 15 mg 04/13/18 10:00 04/13/18 09:53 Methadone PO 04/17/18 09:59 15 mg Q24H REGINA Administration Taper Multivitamins 1 tab 04/13/18 10:00 04/13/18 09:53 Hexavitamin PO 1 tab DAILY REGINA Administration Ondansetron HCl 4 mg 04/12/18 18:55 Zofran Tab PO Q8 PRN Nausea/Vomiting Thiamine HCl 100 mg 04/13/18 10:00 04/13/18 09:53 Vitamin B1 Tab PO 100 mg DAILY REGINA Administration Trazodone HCl 100 mg 04/13/18 09:51 Desyrel PO HS PRN Insomnia Past Psychiatric History - Past Psychiatric History Previous Treatment History: None Pertinent Medical Hx (Current Medical&Sleep Prob, Allergies): Allergies Allergy/AdvReac Type Severity Reaction Status Date / Time No Known Allergies Allergy Unverified 02/04/17 17:01 traZODone [Desyrel] 100 mg PO HS PRN #30 tab 03/06/18 Review of Systems - Review of Systems All systems: reviewed and no additional remarkable complaints except - Neurological Neurological: UNREMARKABLE - Psychiatric Psychiatric: Anxiety, Difficulty Concentrating. absent: Auditory Hallucinations , Confusion, Depression, Hallucinations, Hopelessness, Suicidal Ideation, Visual Hallucinations, Tactile Hallucinations Mental Status Examination - Personal Presentation Personal Presentation: Looks stated age - Affect Affect: Constricted - Motor Activity Motor Activity: Calm - Reliability in Providing Information Reliability in Providing Information: Good - Speech Speech: Organized - Mood Mood: Neutral - Formal Thought Process Formal Thought Process: No Impairment - Cognitive Functions Orientation: Person, Place, Time Sensorium: Alert Attention/Concentration: Attentive Estimate of Intelligence: Average Memory: Recent intact, as evidence by: Ability to recall events of the day, Remote intact, as evidenced by: Abilit to recall sig. life events - Risk Risk: Withdrawal, Diminished functioning - Strength & Assets Inventory Strength & Assets Inventory: Cooperative - Limitations Limitations: Living alone DSM 5 DX - DSM 5 DSM 5 Diagnosis: Opioid Withdrawal Opiate Use Disorder, Severe Alcohol Use Disorder, Severe Alcohol withdrawal - Recommended/Plan of Treatment Treatment Recommendations and Plan of Treatment: Librium detox As needed medications Attend groups and activities Supportive therapy and psychoeducation PR for abstinence CBT for relapse prevention Encourage MAT Refer to rehab or IOP Attend self-help groups as well 34 min Projected ELOS: 4-5 days - Smoking Cessation Smoking Cessation Initiated: Yes
[2018-04-14 06:18] VITALS: RESP 18
[2018-04-14] MEDS: Multiple Vitamins Tab PO SCH (10:42)
--- NOTE | 2018-04-14 12:42 | PCM.PYCHPN ---
Psychiatric Progress Note - Psychiatric Progress Note Patient seen today, length of contact: 17 min Patient Chief Complaint: "I am not well" Problems Identified/Issues Discussed: The pt is seen, chart reviewed, case discussed with staff. The pt is compliant with medications and reports no side-effects. Symptoms are improving but needs more time to stabilize. Still withdrawing After care discussed, support and psychoeducation given. Medication Change: Yes (detox changes daily) Medical Record Reviewed: Yes Mental Status Examination - Cognitive Function Orientation: Person, Place, Time Memory: Intact Attention: WNL Concentration: Poor Association: WNL Fund of Knowledge: WNL - Mood Mood: Anxious - Affect Affect: Constricted - Speech Speech: Appropriate - Formal Thought Process Formal Thought Process: No Impairment - Suicidal Ideation Suicidal Ideation: No - Homicidal Ideation Homicidal Ideation: No Goal/Treatment Plan - Goal/Treatment Plan Need for Continued Stay: Discharge may exacerbated symptoms, Severe functional impairment Progress Toward Problem(s) and Goals/Treatment Plan: Librium detox As needed medications Attend groups and activities Supportive therapy and psychoeducation FL for abstinence CBT for relapse prevention Encourage MAT Refer to rehab or IOP Attend self-help groups as well Estimated Date of D/C: 04/16/18
[2018-04-15] MEDS: Multiple Vitamins Tab PO SCH (10:34)
--- NOTE | 2018-04-15 12:03 | PCM.PYCHPN ---
Psychiatric Progress Note - Psychiatric Progress Note Patient seen today, length of contact: 17 min Patient Chief Complaint: "I am tired" Problems Identified/Issues Discussed: The pt is seen, chart reviewed, case discussed with staff. Support and psychoeducation given, CBT and ND used briefly No new symptoms reported, improving slowly and needs more time However yesterday she had wdw sxs and got an extra dose of methadone. No SEs from medications, risks discussed. After care discussed Medication Change: Yes (detox changes daily) Medical Record Reviewed: Yes Mental Status Examination - Cognitive Function Orientation: Person, Place, Time Memory: Intact Attention: WNL Concentration: Poor Association: WNL Fund of Knowledge: WNL - Mood Mood: Anxious - Affect Affect: Constricted - Speech Speech: Appropriate - Formal Thought Process Formal Thought Process: No Impairment - Suicidal Ideation Suicidal Ideation: No - Homicidal Ideation Homicidal Ideation: No Goal/Treatment Plan - Goal/Treatment Plan Need for Continued Stay: Discharge may exacerbated symptoms, Severe functional impairment Progress Toward Problem(s) and Goals/Treatment Plan: Librium detox Methadone detox As needed medications Attend groups and activities Supportive therapy and psychoeducation ND for abstinence CBT for relapse prevention Encourage MAT Refer to rehab or IOP Attend self-help groups as well Estimated Date of D/C: 04/16/18
[2018-04-16 06:43] VITALS: O2SAT 99
[2018-04-16 08:25] VITALS: BP 106/68; PULSE 62; TEMP 97.8
--- NOTE | 2018-04-16 08:46 | PCM.PYCHDC ---
Mental Status Examination - Mental Status Examination Orientation: Person, Place, Situation, Time Memory: Intact Mood: Anxious Affect: Constricted Speech: Appropriate Attention: WNL Concentration: WNL Association: WNL Fund of Knowledge: WNL Formal Thought Process: No Impairment Suicidal Ideation: No Current Homicidal Ideation?: No Discharge Summary - Discharge Note Consultations:: List each consultation separately and include: 1. Reason for request. 2. Findings. 3. Follow-up Summary of Hospital Course include:: 1. Description of specific treatment plan utilized for patients during their course of treatmen. 2. Summarize the time- course for resolution of acute symptoms and/or regressed behaviors. 3. Describe issues identified and worked on during hospitalization. 4. Describe medication utilized. 5. Describe medical problems identified and treated. 6. Reassessment of suicide risk Summary of Hospital Course: Patient is a 43 year old female who presented to the ED because she wanted detox for her heroin and alcohol abuse. Patients last use was the day of admission in the morning. Patient currently uses 15 bags of heroin a day for the past 6 months (initially started in 2010). Patient drinks 6 pack of beer a day in addition to 3-4 shots of whiskey (started drinking last year and progressively increased the quantity over the year). Patient smokes PPD of cigarettes for the past 20 years. Patient normally does not use cocaine but had a small amount last Friday. Patient complains of withdrawal symptoms including joint pain, nausea, fatigue, and alternating feels of change in temperature. Patient has been here twice. Last year and 2 months ago. Both times she went home instead of rehab and relapsed after 1 week after each discharge. Patient lives alone in apartment in [place]. Patient has 1 daughter who is 23 y/o but has no close relationship with. Patient is unemployed and makes money from unemployment. Detox Hx: 2x Rehab Hx: Denies Medical Hx: Denies Surgical Hx: Denies Family Hx: Brother last year from alcohol abuse. Uncle has substance abuse history with cocaine. Psych Hx: Denies Allergies: No Known Allergies She went to [facility]. - Diagnosis (1) Opioid use disorder, severe, dependence Status: Acute - Final Diagnosis (DSM 5) Condition upon Discharge: STABLE Disposition: HOME/ ROUTINE Follow-up Treatment Plan: Librium detox Methadone detox As needed medications Attend groups and activities Supportive therapy and psychoeducation OR for abstinence CBT for relapse prevention Encourage MAT Refer to rehab or IOP Attend self-help groups as well Prescriptions/Medication Reconciliation: hydrOXYzine HCl [Atarax] 25 mg PO DAILY #30 tab traZODone [Desyrel] 100 mg PO HS PRN #30 tab PRN Reason: Insomnia
== END 2018-04-16 08:30 | disposition home or self-care (01) | DRG 745 ==
LOC: C.ER 15:50 → C.7D 18:16
PROVIDERS: ADMIT Psychiatry & Neurology Psychiatry; ATTEND Psychiatry & Neurology Psychiatry
PROC: HZ2ZZZZ Detoxification Services for Substance Abuse Treatment (ICD-10-PCS; principal; 2018-04-12)
DX: F11.23 Opioid dependence with withdrawal (principal); F17.210 Nicotine dependence, cigarettes, uncomplicated; F10.239 Alcohol dependence with withdrawal, unspecified; F14.10 Cocaine abuse, uncomplicated

== ENCOUNTER 2018-08-04 01:13 | Inpatient (IN) | payer MEDICAID, OTHER ==
[2018-08-04 02:35] LABS: BASO # 0.1 K/uL (0.0-0.2); BASO % 1.3 % (0.0-2.0); EOS # 0.3 K/uL (0.0-0.7); EOS % 4.3 % (0.0-4.0); HEMOGLOBIN 9.1 g/dL (11.0-16.0); LYMPH # 2.4 K/uL (1.0-4.3); LYMPH % 41.1 % (20.0-40.0); MEAN CELL VOLUME 70.7 fL (81.0-99.0); MEAN CORPUSCULAR HEMOGLOBIN 22.4 pg (27.0-31.0); MEAN CORPUSCULAR HGB CONC 31.7 g/dL (33.0-37.0); MEAN PLATELET VOLUME 7.7 fL (7.2-11.7); MONO # 0.4 K/uL (0.0-0.8); MONO % 7.1 % (0.0-10.0); NEUT # 2.7 K/uL (1.8-7.0); NEUT % 46.2 % (50.0-75.0); RBC 4.07 Mil/uL (3.80-5.20); RED CELL DISTRIBUTION WIDTH 16.6 % (11.5-14.5); WHITE BLOOD COUNT 5.9 K/uL (4.8-10.8)
[2018-08-04 02:40] LABS: SQUAMOUS EPITHIAL < 1 /hpf (0-5); URINE BILIRUBIN NEGATIVE (NEGATIVE); URINE BLOOD NEGATIVE (NEGATIVE); URINE CLARITY Clear (Clear); URINE COLOR Yellow (YELLOW); URINE GLUCOSE (UA) NORMAL (Normal); URINE LEUKOCYTE ESTERASE NEG Leu/uL (Negative); URINE PROTEIN NEGATIVE (NEGATIVE); URINE UROBILINOGEN NORMAL mg/dL (0.2-1.0)
[2018-08-04 02:53] LABS: BARBITURATES, UR NEGATIVE (NEGATIVE); BENZODIAZEPINES, UR NEGATIVE (NEGATIVE); PHENCYCLIDINE, UR NEGATIVE (NEGATIVE)
[2018-08-04 03:04] LABS: ALB/GLOB RATIO 1.4 (1.0-2.1); ALBUMIN 3.7 g/dL (3.5-5.0); ALT/SGPT 27 U/L (9-52); AST/SGOT 20 U/L (14-36); BLOOD UREA NITROGEN 7 mg/dL (7-17); CALCIUM 8.9 mg/dl (8.6-10.4); GFR NON-AFRICAN AMERICAN > 60
[2018-08-04 03:05] LABS: OPIATES, UR POSITIVE (NEGATIVE)
--- NOTE | 2018-08-04 04:31 | C.PDOC ---
History Of Present Illness Pt was prescribed for detox, came in to be evaluated for Detox admission. Pt has used heroin and alcohol. Last use 2 hrs [employer]. No medical c/o, no S/H ideations Time Seen by Provider: 08/04/18 01:41 Chief Complaint (Nursing): Substance Abuse History Per: Patient History/Exam Limitations: no limitations Modifying Factor(s): Alcohol, Other (heroin) Associated Symptoms: denies: Anxiety, Agitation, Depression, Suicidal Thoughts, Suicidal Plan Recent travel outside of the [place]: No Past Medical History Vital Signs: Last Vital Signs Temp 98.3 F 08/04/18 04:25 Pulse 70 08/04/18 04:25 Resp 20 08/04/18 04:25 BP 114/69 08/04/18 04:25 Pulse Ox 98 08/04/18 04:25 - Medical History PMH: Denies: Diabetes, Hepatitis, HIV, HTN, Chronic Kidney Disease, Seizures, Sexually Transmitted Disease - [facility] Procedures DETOXIFICATION SERVICES FOR SUBSTANCE ABUSE TREATMENT (04/12/18) GROUP LITIGATION EXAMINER FOR SUBSTANCE ABUSE TREATMENT, PSYCHOEDUCATION (06/04/17) GROUP PSYCHOTHERAPY (03/02/18) INDIV PSYCHOTHERAPY FOR SUBSTANCE ABUSE TREATMENT, SUPPORT (06/04/17) Family History: States: Unknown Family Hx - Social History Hx Alcohol Use: Yes Hx Substance Use: Yes (heroin snort) - Immunization History Hx Tetanus Toxoid Vaccination: No Hx Influenza Vaccination: No Hx Pneumococcal Vaccination: No Review Of Systems Constitutional: Negative for: Fever Cardiovascular: Negative for: Chest Pain, Palpitations Respiratory: Negative for: Cough, Shortness of Breath Gastrointestinal: Negative for: Vomiting, Abdominal Pain Skin: Negative for: Rash Neurological: Negative for: Weakness, Numbness Physical Exam - Physical Exam Appears: Well, Non-toxic Eye(s): bilateral: Normal Inspection, PERRL Neck: Normal, Supple Cardiovascular: Rhythm Regular Respiratory: Normal Breath Sounds, No Rhonchi, No Wheezing Gastrointestinal/Abdominal: Normal Exam Extremity: Normal ROM Extremity: Bilateral: Atraumatic, Normal Color And Temperature Neurological/Psych: Oriented x3, Normal Speech, Normal Cognition Gait: Steady ED Course And Treatment - Laboratory Results Result Diagrams: 08/04/18 02:30 08/04/18 02:30 O2 Sat by Pulse Oximetry: 98 Pulse Ox Interpretation: Normal Progress Note: Labs ordered and reviewed, H?H lower from previous i april 2018 but patient is stable asymptomatic stable vitals and is cleared and stable for Detox admission. [facility] and will be admitted for Detox under Dr Espinoza Disposition - Disposition Referrals: Non [facility] Provider, [Primary Care Provider] - Disposition: HOSPITALIZED Disposition Time: 04:03 Condition: GOOD Forms: [facility] (Tuvaluan) - Clinical Impression Clinical Impression: Opioid use disorder, severe, dependence
[2018-08-04] MEDS ORDERED: Aluminum Hydroxide/Magnesium Hydroxide Susp (30 mL) PO PRN (10:15)
--- NOTE | 2018-08-04 13:11 | PCM.PSYCH ---
Addendum entered and electronically signed by Jared Hammer MD 08/04/18 23:02: I attest that I have interviewed the pt and reviewed the chart and participated and agree with the following assessment and plan. Original Note: Initial Psychiatric Evaluation - Initial Psychiatric Evaluation Type of Admission: Voluntary Legal Status: Capacity Chief Complaint (in patient's own words): "I do heroin." History of Present Illness and Precipitating Events: Patient is a 43 year old female who presented to the ED because she wanted detox for her heroin and alcohol abuse. Patients last use was immediately prior to admission. Patient currently sniffs 10-15 bags of heroin a day for the past 6 months (initially started in 2010). Patient drinks 6 pack of beer a day in addition to 3-4 shots of whiskey (started drinking last year and progressively increased the quantity over the year). Patient smokes 1 ppd of cigarettes for the past 20 years. Patient complains of withdrawal symptoms including joint pain, nausea, fatigue, and alternating feels of change in temperature. This is the 5th stay at [facility] for heroin detox; last was earlier this year in April. She does not go to rehab after discharge, instead going home and relapses within a week of discharge. Patient lives alone in apartment in [place]. Patient has 1 daughter who is 23 y/o but has no close relationship with. Patient is unemployed and makes money from unemployment. Denies SI/HI, AVH. PMH: Denies Surgical Hx: Denies Family Hx: Brother last year from alcohol abuse. Uncle has substance abuse history with cocaine. Psych Hx: Denies Allergies: No Known Allergies ED: BAL <10, UDS + for opiates Current Medications: Active Medications Generic Name Dose Route Start Last Admin Trade Name Freq PRN Reason Stop Dose Admin Al Hydrox/Mg Hydrox/Simethicone 30 ml 08/04/18 10:15 Maalox 30 Ml PO TID PRN Indigestion / Heartburn Clonidine HCl 0.1 mg 08/04/18 10:15 Catapres PO Q8 PRN COWS Score More or Equal to 5 Hydroxyzine HCl 50 mg 08/04/18 10:16 Atarax PO Q6H PRN Anxiety Ibuprofen 600 mg 08/04/18 10:19 Motrin Tab PO Q6H PRN Pain, moderate (4-7) Loperamide HCl 2 mg 08/04/18 10:15 Imodium PO Q8 PRN Diarrhea Ondansetron HCl 4 mg 08/04/18 10:15 Zofran Tab PO Q8 PRN Nausea/Vomiting Trazodone HCl 100 mg 08/04/18 22:00 Desyrel PO HS [facility] Past Psychiatric History - Past Psychiatric History Pertinent Medical Hx (Current Medical&Sleep Prob, Allergies): Allergies Allergy/AdvReac Type Severity Reaction Status Date / Time No Known Allergies Allergy Unverified 08/04/18 01:34 No Known Home Med 08/04/18 Review of Systems - Psychiatric Psychiatric: Anxiety, Difficulty Concentrating. absent: Confusion, Depression, Hallucinations, Homicidal Ideation, Suicidal Ideation Mental Status Examination - Personal Presentation Personal Presentation: Looks older than stated age - Affect Affect: Constricted - Motor Activity Motor Activity: Calm - Reliability in Providing Information Reliability in Providing Information: Good - Speech Speech: Organized - Mood Mood: Neutral - Formal Thought Process Formal Thought Process: No Impairment - Cognitive Functions Orientation: Person, Place, Time Sensorium: Alert Attention/Concentration: Attentive Estimate of Intelligence: Average Memory: Recent intact, as evidence by: Ability to recall events of the day, Remote intact, as evidenced by: Abilit to recall sig. life events - Risk Risk: Withdrawal, Diminished functioning - Strength & Assets Inventory Strength & Assets Inventory: Cooperative - Limitations Limitations: Living alone DSM 5 DX - DSM 5 DSM 5 Diagnosis: Opioid use disorder - severe Opioid withdrawal Alcohol use disorder - severe Alcohol withdrawal - Recommended/Plan of Treatment Treatment Recommendations and Plan of Treatment: Ativan detox As needed medications Attend groups and activities Supportive therapy and psychoeducation [place] for abstinence CBT for relapse prevention Encourage MAT Refer to rehab or IOP Attend self-help groups as well Smoking cessation with [place] Nicotine patch daily 34 min Projected ELOS: 5 days - Smoking Cessation Smoking Cessation Initiated: Yes
[2018-08-04] MEDS: Multiple Vitamins Tab PO SCH (15:28)
--- NOTE | 2018-08-04 15:30 | PCM.BM ---
<Rigoberto Hernandez - Last Filed: 08/04/18 15:29> Treatment Plan Problems - Problems identified on initial assessmt potential for opiate withdrawal Date Initiated: 08/04/18 Time Initiated: 15:30 Status: Active Treatment assets and liabiliti Patient Assests: cooperative, educated, ADL independent, physically healthy, negotiates basic needs, cognitively intact - Milieu Protocol Maintain good personal hygiene: daily Encourage regular showers, daily Remind patient to perform daily oral care, daily Assist patient to perform ADL's Conduct patient checks and document Observation sheet: Q15 minutes Maintain personal safety: every shift Educate patient to report safety concerns to staff, every shift Monitor environment for contraband/sharps Medication safety: Monitor for expected outcome, potential side effects: every shift, Assess barriers to learning: every shift, Assess readiness for medication education: every shift Milieu Narrative: Ativan detox As needed medications Attend groups and activities Supportive therapy and psychoeducation [place] for abstinence CBT for relapse prevention Encourage MAT Refer to rehab or IOP Attend self-help groups as well Smoking cessation with [place] Nicotine patch daily 34 min Discharge/Continuing Care - Treatment Team Participation Patient/Family/SO Statement: Ativan detox As needed medications Attend groups and activities Supportive therapy and psychoeducation [place] for abstinence CBT for relapse prevention Encourage MAT Refer to rehab or IOP Attend self-help groups as well Smoking cessation with [place] Nicotine patch daily 34 min <Jared Hammer - Last Filed: 08/04/18 23:04> - Diagnosis (1) Opioid use disorder, severe, dependence Status: Acute Interventions: 08/04/18 23:04 * Assess 7x/week regarding severity of withdrawal * Educate regarding risks, benefits, side effects and alternatives of medications * Use Motivational Interviewing for abstinence * Use CBT for relapse prevention * Medication management for withdrawal symptoms * Encourage medication assisted treatment * <Onelia Wiley - Last Filed: 08/06/18 09:50> Family Contact Family involvement: Famliy/SO not involved - Goals for Treatment Patient goals for treatment: Complete detox and transition to an inpatient rehab. Discharge/Continuing Care - Education Needs Education Needs: Patient Medication, Patient Diagnosis/Disease Process, Patient Coping Skills, Patient Anger Management skills, Patient Placement options, Patient Community resources - Discharge Discharge Criteria: No longer exhibiting s/s of withdrawal, Reduction of target symptoms Discharge to:: Substance Abuse Rehab - Treatment Team Participation Patient/Family/SO Statement: 08/06/18 09:50 "I wanna go to [facility]." Discussed with Family/SO: No Was Patient/Family/SO present at Treatment Team Meeting: Yes
[2018-08-05] MEDS: Multiple Vitamins Tab PO SCH (09:37)
--- NOTE | 2018-08-05 14:43 | PCM.PYCHPN ---
Psychiatric Progress Note - Psychiatric Progress Note Patient seen today, length of contact: 16 min Patient Chief Complaint: "Not OK but better" Problems Identified/Issues Discussed: The pt is seen, chart reviewed, case discussed with staff. Support and psychoeducation given, CBT and [place] used briefly No new symptoms reported, improving slowly and needs more time No SEs from medications, risks discussed. After care discussed Medication Change: Yes (detox changes daily) Medical Record Reviewed: Yes Mental Status Examination - Cognitive Function Orientation: Person, Place, Time Memory: Intact Attention: Poor Concentration: Poor Association: WNL Fund of Knowledge: WNL - Mood Mood: Anxious - Affect Affect: Constricted - Speech Speech: Appropriate - Formal Thought Process Formal Thought Process: No Impairment - Suicidal Ideation Suicidal Ideation: No - Homicidal Ideation Homicidal Ideation: No Goal/Treatment Plan - Goal/Treatment Plan Need for Continued Stay: Discharge may exacerbated symptoms, Severe functional impairment Progress Toward Problem(s) and Goals/Treatment Plan: Continue medications Support and psychoeducation daily Attend groups and activities daily After care planning by BUSTER Estimated Date of D/C: 08/08/18
[2018-08-06] MEDS: Multiple Vitamins Tab PO SCH (09:32)
--- NOTE | 2018-08-06 11:22 | RAD ---
Date of service: 08/05/2018 HISTORY: rehab placement COMPARISON: No prior. TECHNIQUE: Chest PA and lateral FINDINGS: LUNGS: No active pulmonary disease. PLEURA: No significant pleural effusion identified. No pneumothorax apparent. CARDIOVASCULAR: Normal. OSSEOUS STRUCTURES: No significant abnormalities. VISUALIZED UPPER ABDOMEN: Normal. OTHER FINDINGS: None. IMPRESSION: No active disease.
--- NOTE | 2018-08-06 22:24 | PCM.PYCHPN ---
Psychiatric Progress Note - Psychiatric Progress Note Patient seen today, length of contact: 16 min Patient Chief Complaint: I am feeling little better.' Problems Identified/Issues Discussed: Patient seen and evaluated, chart reviewed and discussed with the nurse. Patient reports withdrawal symptoms including, cramps, nausea, anxiety and headaches. Patient reports some anxiety but denies any suicidal ideation or homicidal ideation. She denies any auditory or visual hallucinations. She is tolerating the withdrawal medications and denies any side effects. Supportive therapy and psychoeducation were given. Medication Change: Yes (detox changes daily) Medical Record Reviewed: Yes Mental Status Examination - Cognitive Function Orientation: Person, Place, Time Memory: Intact Attention: Poor Concentration: Poor Association: WNL Fund of Knowledge: WNL - Mood Mood: Anxious - Affect Affect: Constricted - Speech Speech: Appropriate - Formal Thought Process Formal Thought Process: No Impairment - Suicidal Ideation Suicidal Ideation: No - Homicidal Ideation Homicidal Ideation: No Goal/Treatment Plan - Goal/Treatment Plan Need for Continued Stay: Discharge may exacerbated symptoms, Severe functional impairment Progress Toward Problem(s) and Goals/Treatment Plan: Opioid use disorder - severe Opioid withdrawal Alcohol use disorder - severe Alcohol withdrawal Ativan detox As needed medications Attend groups and activities Supportive therapy and psychoeducation [place] for abstinence CBT for relapse prevention Encourage MAT Refer to rehab or IOP Attend self-help groups as well Smoking cessation with [place] Nicotine patch daily Estimated Date of D/C: 08/08/18
--- NOTE | 2018-08-07 08:16 | PCM.PYCHDC ---
Mental Status Examination - Mental Status Examination Orientation: Person Discharge Summary - Discharge Note Consultations:: List each consultation separately and include: 1. Reason for request. 2. Findings. 3. Follow-up Summary of Hospital Course include:: 1. Description of specific treatment plan utilized for patients during their course of treatmen. 2. Summarize the time- course for resolution of acute symptoms and/or regressed behaviors. 3. Describe issues identified and worked on during hospitalization. 4. Describe medication utilized. 5. Describe medical problems identified and treated. 6. Reassessment of suicide risk Summary of Hospital Course: She went to [facility]. - Diagnosis (1) Opioid use disorder, severe, dependence Current Visit: Yes Status: Acute - Final Diagnosis (DSM 5) Condition upon Discharge: GOOD Disposition: HOME/ ROUTINE Follow-up Treatment Plan: Continue medications Support and psychoeducation daily Attend groups and activities daily After care planning by BUSTER Prescriptions/Medication Reconciliation: Gabapentin [Neurontin] 300 mg PO BID #60 cap traZODone [Desyrel] 100 mg PO HS #30 tab
[2018-08-07] MEDS: Multiple Vitamins Tab PO SCH (09:53)
[2018-08-07 11:08] VITALS: BP 136/84; PULSE 78; RESP 19; TEMP 97.8; O2SAT 100
== END 2018-08-07 11:29 | disposition home or self-care (01) | DRG 745 ==
LOC: C.ER 01:13 → SUPCPDRO 01:13 → C.7D 04:01
PROVIDERS: ADMIT Psychiatry & Neurology Psychiatry; ATTEND Psychiatry & Neurology Psychiatry
PROC: GZHZZZZ Group Psychotherapy (ICD-10-PCS; principal; 2018-08-04)
PROC: GZ56ZZZ Individual Psychotherapy, Supportive (ICD-10-PCS; 2018-08-04)
DX: F11.23 Opioid dependence with withdrawal (principal); F17.210 Nicotine dependence, cigarettes, uncomplicated; F41.9 Anxiety disorder, unspecified; F10.230 Alcohol dependence with withdrawal, uncomplicated; Y90.9 Presence of alcohol in blood, level not specified